=== PATIENT | female | born 1960 | race Caucasian/White ===

== ENCOUNTER 2017-05-03 10:45 | Emergency (ER) | payer MEDICAID ==
[~2017-05-03] VITALS: Ht 170.2 cm; Wt 72.5 kg
[~2017-05-03 10:45] MED LIST: DICL50TA2 PO; METH750T2 PO
[2017-05-03 11:01] VITALS: BP 139/83; PULSE 98; RESP 18; TEMP 98.7; O2SAT 95
[2017-05-03] MEDS ORDERED: ATOR20TA15 PO (11:20)
[2017-05-03] MEDS ORDERED: LOSA50TA PO (11:20)
[2017-05-03] MEDS ORDERED: SYNT25TA PO (11:20)
[2017-05-03] MEDS ORDERED: ASPI81CH CHEW (11:20)
[2017-05-03] MEDS ORDERED: KETOROLAC TROMETHAMINE 60 MG/2 ML (IM) VIAL IM ONE (11:30)
[2017-05-03] MEDS ORDERED: INDO50CA PO (11:32)
--- NOTE | 2017-05-03 11:32 | PD ---
HPI Chief Complaint: Musculoskeletal Complaint Time Seen by Provider: 11:11 Travel History International Travel<30 days: No Contact w/Intl Traveler<30days: No Traveled to known affect area: No History of Present Illness HPI 56-year-old female presents to the emergency room via ambulance for evaluation of right knee pain that started yesterday. Pain is severe. Localized to the medial aspect. No radiation. Worse with range of motion. No pain at rest. States she could not ambulate because of pain. She has not taken anything for symptoms. Denies trauma or injury. States it started yesterday after sitting down at a restaurant [place] and progressively worsened throughout the night. States she called her daughter to take her to the emergency room this morning but she could not get out of bed because of the pain that she had to call 911. States she can take Motrin and Advil without any problems but Aleve makes her itchy. Denies recent increased fish intake or significant alcohol intake. States she had 2 glasses of wine last night. PFSH Past Medical History High Cholesterol: Yes Hypertension: Yes Thyroid Disease: Yes Social History Alcohol Use: Yes (STATES SHE DRANK A COUPLE OF GLASSES OF WINE LAST NIGHT) Tobacco Use: No Substance Use: No Allergies-Medications (Allergen,Severity, Reaction): Coded Allergies: naproxen (Unverified Allergy, Severe, 05/03/17) HIVES Reported Meds & Prescriptions Reported Meds & Active Scripts Active Indomethacin 50 Mg Cap 50 Mg PO TID 5 Days Take with food, milk, or antacids to decrease stomach adverse effects. Reported Losartan (Losartan Potassium) 50 Mg Tab 50 Mg PO DAILY Aspirin 81 Mg Chew 81 Mg CHEW DAILY Atorvastatin (Atorvastatin Calcium) 20 Mg Tab 20 Mg PO HS Synthroid (Levothyroxine Sodium) 25 Mcg Tab 25 Mcg PO DAILY Review of Systems Except as stated in HPI: all other systems reviewed are Neg Physical Exam Narrative GENERAL: Well-nourished, well-developed female in no acute distress. Afebrile. SKIN: Focused skin assessment warm/dry. No erythema. Multiple areas of ecchymosis throughout body, especially on legs in different stages of healing. HEAD: Normocephalic. EYES: No scleral icterus. No injection or drainage. NECK: Supple, trachea midline. No JVD or lymphadenopathy. CARDIOVASCULAR: Regular rate and rhythm without murmurs, gallops, or rubs. RESPIRATORY: Breath sounds equal bilaterally. No accessory muscle use. MUSCULOSKELETAL: No cyanosis. No obvious edema or effusion. 2+ dorsalis pedis pulse. Full range of motion. Pain with active range of motion. No pain with passive range of motion. No bony tenderness to palpation. There is moderate increased warmth. Data Data Last Documented VS Vital Signs Date Time Temp Pulse Resp B/P (MAP) Pulse Ox O2 Delivery O2 Flow Rate FiO2 05/03/17 11:01 98.7 98 18 139/83 (101) 95 Orders Orders Ketorolac Inj (Toradol Inj) (05/03/17 11:30) Crutches (05/03/17 11:24) Marvin Bandage (05/03/17 11:24) Acetamin-Hydrocod 325-5 Mg ([place] 5-325 (05/03/17 12:00) MDM Medical Decision Making Medical Screen Exam Complete: Yes Emergency Medical Condition: Yes Medical Record Reviewed: Yes Differential Diagnosis Internal derangement, fracture, dislocation, contusion, inflammatory arthritis Narrative Course 56-year-old female presents to the emergency room for evaluation of right knee pain that started yesterday gradually worsened overnight. Patient denies trauma or injury. Pain started while sitting in a restaurant [place]. Physical exam is reassuring. Patient has minimal pain with passive range of motion but severe pain with active range of motion. Right lower extremities is neurovascularly intact with 2+ dorsalis pedis pulse. Full range of motion. No obvious effusion or edema. No bony tenderness to palpation. There is moderately increased warmth to the medial aspect of the right knee. No indication for imaging at this time. No concern for septic arthritis. History and physical exam are consistent with inflammatory arthritis. Patient was given Toradol and Lortab in the emergency room. She was placed in Marvin wrap and given crutches. She was discharged with prescription for indomethacin. Patient became cantankerous when told that she would not be provided with narcotic pain medication to go home with. She has the smell of alcohol on her breath and I am concerned for mixing narcotics with alcohol. Told to follow up with a primary care physician or return for worsening symptoms. She understands and agrees to plan. Diagnosis Primary Impression: Inflammatory arthritis Referrals: Primary Care Physician Additional Instructions: Rest and drink plenty of fluids. Use Marvin wrap and crutches as needed for pain. Take ibuprofen with food as directed, as needed for pain. Apply ice to the affected area for 20 minutes at a time, as needed for pain and swelling. Follow-up with a primary care physician. Return to the emergency room for worsening symptoms. Med/Other Pt SpecificInfo: Prescription(s) given Scripts Indomethacin (Indomethacin) 50 Mg Cap 50 MG PO TID for 5 Days, CAP 0 Refills Take with food, milk, or antacids to decrease stomach adverse effects. Prov: Butch Oropeza MD 05/03/17 Disposition: 01 DISCHARGE HOME Condition: Stable Paola Wills May 03, 2017 11:32
[2017-05-03] MEDS ORDERED: ACETAMINOPHEN/HYDROcodone 325 MG/5 MG TAB PO ONE (12:00)
== END 2017-05-03 13:13 | disposition home or self-care (01) ==
LOC: PHEFT 10:45
DX: M06.4 Inflammatory polyarthropathy (principal); E78.00 Pure hypercholesterolemia, unspecified; I10 Essential (primary) hypertension; E07.9 Disorder of thyroid, unspecified
CPT/HCPCS: 96372; 99284; E0113; J1885

== ENCOUNTER 2017-10-01 12:18 | Inpatient (IN) | payer MEDICAID ==
[~2017-10-01] VITALS: Ht 167.6 cm; Wt 64.3 kg
[2017-10-01] VITALS (7 sets, daily range): BP systolic 130–158; BP diastolic 76–91; PULSE 70–92; RESP 13–22; TEMP 97.1–98.7; O2SAT 95–99
[~2017-10-01 12:18] MED LIST changes: +ASPI-516 CHEW; +ATOR20TA15 PO; -DICL50TA2 PO; +INDO50CA PO; +LOSA50TA PO; -METH750T2 PO; +SYNT25TA PO
[2017-10-01] MEDS ORDERED: SODIUM CHLORIDE 0.9% FLUSH 10 ML FLUSH IV FLUSH PRN ×2 (12:45→16:00)
[2017-10-01] MEDS ORDERED: NALOXONE HCL 0.4 MG/ML AMP IV PUSH ONE (12:45)
--- NOTE | 2017-10-01 12:48 | PD ---
HPI Chief Complaint: AMS Time Seen by Provider: 12:38 Travel History International Travel<30 days: No Contact w/Intl Traveler<30days: No Traveled to known affect area: No History of Present Illness HPI 56-year-old female presents to the emergency room for evaluation of altered mental status. Her family called the ambulance because she was not responding to them. Patient was found lying on the ground, next to her address with a pillow under her head. Her mattress is directly on the floor. Her family told paramedics she has had flulike symptoms. Unknown last seen normal. Patient's vital signs were stable throughout the ambulance ride. She responded to pain and was moving all extremities normally. She refuses to follow commands. History is limited. Patient localizes to pain, opens eyes to speech. She was noted to be moaning on scene. She does not follow commands. Family showed up a short time later and was unable to add anything meaningful to the history. PFSH Past Medical History High Cholesterol: Yes Hypertension: Yes Thyroid Disease: Yes Social History Alcohol Use: Yes (STATES SHE DRANK A COUPLE OF GLASSES OF WINE LAST NIGHT) Tobacco Use: No Substance Use: No Allergies-Medications (Allergen,Severity, Reaction): Coded Allergies: naproxen (Unverified Allergy, Severe, 05/03/17) HIVES Reported Meds & Prescriptions Reported Meds & Active Scripts Active Indomethacin 50 Mg Cap 50 Mg PO TID 5 Days Take with food, milk, or antacids to decrease stomach adverse effects. Reported Losartan (Losartan Potassium) 50 Mg Tab 50 Mg PO DAILY Aspirin 81 Mg Chew 81 Mg CHEW DAILY Atorvastatin (Atorvastatin Calcium) 20 Mg Tab 20 Mg PO HS Synthroid (Levothyroxine Sodium) 25 Mcg Tab 25 Mcg PO DAILY Review of Systems Except as stated in HPI: all other systems reviewed are Neg Physical Exam Narrative GENERAL: Well-nourished, well-developed female in no acute distress. Afebrile. Ambulatory. SKIN: Focused skin assessment warm/dry. HEAD: Normocephalic. EYES: No scleral icterus. No injection or drainage. NECK: Supple, trachea midline. No JVD or lymphadenopathy. CARDIOVASCULAR: Regular rate and rhythm without murmurs, gallops, or rubs. RESPIRATORY: Breath sounds equal bilaterally. No accessory muscle use. GASTROINTESTINAL: Abdomen soft, non-tender, nondistended. NEUROLOGICAL: Awake and alert. Motor and sensory grossly within normal limits. Patient localizes to pain, opens eyes to speech. She does not follow commands. Data Data Last Documented VS Vital Signs Date Time Temp Pulse Resp B/P (MAP) Pulse Ox O2 Delivery O2 Flow Rate FiO2 10/01/17 15:43 85 21 138/76 (96) 99 10/01/17 12:49 98.7 Room Air Orders Orders Electrocardiogram (10/01/17 12:32) Ammonia (10/01/17 12:32) Complete Blood Count With Diff (10/01/17 12:32) Comprehensive Metabolic Panel (10/01/17 12:32) Prothrombin Time / Inr (Pt) (10/01/17 12:32) Act Partial Throm Time (Ptt) (10/01/17 12:32) Troponin I (10/01/17 12:32) Thyroid Stimulating Hormone (10/01/17 12:32) Urinalysis - C+S If Indicated (10/01/17 12:32) Lactic Acid Sepsis Protocol (10/01/17 12:32) Blood Culture (10/01/17 12:32) Chest, Single Ap (10/01/17 12:32) Ct Brain W/O Iv Contrast(Rout) (10/01/17 12:32) Blood Glucose (10/01/17 12:32) Ecg Monitoring (10/01/17 12:32) Iv Access Insert/Monitor (10/01/17 12:32) Oximetry (10/01/17 12:32) Sodium Chloride 0.9% Flush (Ns Flush) (10/01/17 12:45) Drug Screen, Random Urine (10/01/17 12:32) Alcohol (Ethanol) (10/01/17 12:32) Influenzae A/B Antigen (10/01/17 12:32) Naloxone Inj (Narcan Inj) (10/01/17 12:45) Lactulose Liq (Lactulose Liq) (10/01/17 16:00) Inpatient Certification (10/01/17 15:23) Admit Order (Ed Use Only) (10/01/17 15:56) Admit To Inpatient (10/01/17 ) Vital Signs (Adult) Q4H (10/01/17 15:52) Neuro Checks Q4H (10/01/17 15:52) Activity Bed Rest (10/01/17 15:52) Bedside Glucose GERALDO.CSUGAR (10/01/17 15:52) Store Clerk Checker / Telemetry .CONTINUOUS (10/01/17 15:52) Intake + Output GERALDO.QSHIFT (10/01/17 15:52) Notify Dr: Other (10/01/17 15:52) Diet Clear Liquid (10/01/17 Dinner) Sodium Chlor 0.9% 1000 Ml Inj (Ns 1000 M (10/01/17 16:00) Sodium Chloride 0.9% Flush (Ns Flush) (10/01/17 16:00) Sodium Chloride 0.9% Flush (Ns Flush) (10/01/17 21:00) Ondansetron Inj (Zofran Inj) (10/01/17 16:00) Comprehensive Metabolic Panel (10/02/17 06:00) Complete Blood Count With Diff (10/02/17 06:00) Heparin Inj (Heparin Inj) (10/01/17 16:00) Scd Bilateral/Knee High GERALDO.BID (10/01/17 15:52) Naloxone Inj (Narcan Inj) (10/01/17 16:00) Lactulose Liq (Lactulose Liq) (10/01/17 17:00) Inpatient Certification (10/01/17 ) Ammonia (10/02/17 06:00) Labs Laboratory Tests Test 10/01/17 13:04 10/01/17 14:16 White Blood Count 3.1 TH/MM3 Red Blood Count 3.80 MIL/MM3 Hemoglobin 12.1 GM/DL Hematocrit 36.0 % Mean Corpuscular Volume 94.9 FL Mean Corpuscular Hemoglobin 31.8 PG Mean Corpuscular Hemoglobin Concent 33.6 % Red Cell Distribution Width 20.1 % Platelet Count 173 TH/MM3 Mean Platelet Volume 8.3 FL Neutrophils (%) (Auto) 62.7 % Lymphocytes (%) (Auto) 31.4 % Monocytes (%) (Auto) 4.6 % Eosinophils (%) (Auto) 0.8 % Basophils (%) (Auto) 0.5 % Neutrophils # (Auto) 1.9 TH/MM3 Lymphocytes # (Auto) 1.0 TH/MM3 Monocytes # (Auto) 0.1 TH/MM3 Eosinophils # (Auto) 0.0 TH/MM3 Basophils # (Auto) 0.0 TH/MM3 CBC Comment DIFF FINAL Differential Comment Urine Color YELLOW Urine Turbidity CLEAR Urine pH 8.0 Urine Specific [place] 1.016 Urine Protein NEG mg/dL Urine Glucose (UA) NEG mg/dL Urine Ketones NEG mg/dL Urine Occult Blood TRACE Urine Nitrite NEG Urine Bilirubin NEG Urine Urobilinogen LESS THAN 2.0 MG/DL Urine Leukocyte Esterase NEG Urine RBC 1 /hpf Urine Squamous Epithelial Cells <1 /hpf Microscopic Urinalysis Comment CATH-CULT NOT IND Blood Urea Nitrogen 9 MG/DL Creatinine 0.82 MG/DL Random Glucose 95 MG/DL Total Protein 6.3 GM/DL Albumin 3.1 GM/DL Calcium Level 7.7 MG/DL Alkaline Phosphatase 162 U/L Aspartate Amino Transf (AST/SGOT) 68 U/L Alanine Aminotransferase (ALT/SGPT) 33 U/L Total Bilirubin 0.3 MG/DL Sodium Level 142 MEQ/L Potassium Level 3.7 MEQ/L Chloride Level 106 MEQ/L Carbon Dioxide Level 27.1 MEQ/L Anion Gap 9 MEQ/L Estimat Glomerular Filtration Rate 72 ML/MIN Lactic Acid Level 1.9 mmol/L Ammonia 231 MCMOL/L Troponin I LESS THAN 0.02 NG/ML Thyroid Stimulating Hormone 3rd Gen 9.290 uIU/ML Ethyl Alcohol Level 159 MG/DL Prothrombin Time 12.4 SEC Prothromb Time International Ratio 1.2 RATIO Activated Partial Thromboplast Time 23.6 SEC [facility] Medical Decision Making Medical Screen Exam Complete: Yes Emergency Medical Condition: Yes Medical Record Reviewed: Yes Differential Diagnosis Drug overdose, alcohol intoxication, stroke, STEMI, sepsis Narrative Course 56-year-old female with history of hypertension, hypothyroidism and had hypercholesterolemia presents to the emergency room for evaluation of altered mental status. Her family found her lying on the floor next to her mattress with a pillow under her head. She was not acting normally. Unknown last seen normal. On exam, patient localizes to pain, opens eyes to speech. She does not follow commands and is not speaking. History limited. GCS is 10 on initial examination. Vital signs stable. Patient is protecting her airway. IV access established and basic labs obtained. Patient was in cardiac telemetry. EKG shows sinus rhythm with a rate of [address] changes. Chest x-ray and CT of the brain are unremarkable. CBC is essentially unremarkable. CMP is essentially unremarkable. Lactic acid is 1.9. Ammonia is markedly elevated at 231. Troponin is less than 0.02. TSH is elevated to 9.29 and a patient with known hypothyroidism. Alcohol level of 159. UA shows no evidence of infection. Patient was initially given 0.4 mg of IV Narcan without any change in behavior. Rectal lactulose was ordered. Upon insertion of the catheter into the rectum, patient began to wake up. While administering the lactulose, her GCS increased from 10-14. Patient will be admitted to the hospitalist. Diagnosis Primary Impression: Alcohol intoxication Qualified Codes: F10.929 - Alcohol use, unspecified with intoxication, unspecified Additional Impression: Hepatic encephalopathy Admitting Information Admitting Physician Requests: Admit Condition: Stable Paola Wills Oct 01, 2017 12:48
--- NOTE | 2017-10-01 13:35 | RADRPT ---
EXAM DATE/TIME: 10/01/2017 12:51 [facility] COMPARISON: No previous studies available for comparison. INDICATIONS : Found unresponsive. MEDICAL HISTORY : none known SURGICAL HISTORY : none known ENCOUNTER: Initial ACUITY: 1 day PAIN SCORE: Non-responsive. LOCATION: Bilateral chest FINDINGS: A single view of the chest demonstrates the lungs to be symmetrically aerated without evidence of mas s, infiltrate or effusion. The cardiomediastinal contours are unremarkable. Osseous structures are intact. CONCLUSION: 1. No acute cardiopulmonary disease. Shelton Mireles MD on October 01, 2017 at 13:31 Board Certified Radiologist. This report was verified electronically.
[2017-10-01 13:44] LABS: AUTOMATED NEUTROPHIL # 1.9 TH/MM3 (1.8-7.7); BASOPHIL % 0.5 % (0.0-2.0); EOSINOPHIL % 0.8 % (0.0-4.0); HEMOGLOBIN 12.1 GM/DL (11.6-15.3); LYMPH % 31.4 % (9.0-44.0); MEAN CELL VOLUME 94.9 FL (80.0-100.0); MEAN CORPUSCULAR HEMOGLOBIN 31.8 PG (27.0-34.0); MEAN CORPUSCULAR HGB CONC 33.6 % (32.0-36.0); MEAN PLATELET VOLUME 8.3 FL (7.0-11.0); MONO % 4.6 % (0.0-8.0); MONOCYTE # 0.1 TH/MM3 (0-0.9); NEUT % 62.7 % (16.0-70.0); PLATELET COUNT 173 TH/MM3 (150-450); RED CELL DISTRIBUTION WIDTH 20.1 % (11.6-17.2); WHITE BLOOD COUNT 3.1 TH/MM3 (4.0-11.0)
[2017-10-01 13:49] LABS: BILIRUBIN, URINE NEG (NEG); BLOOD, URINE TRACE (NEG); GLUCOSE,URINE NEG (NEG); KETONE, URINE NEG (NEG); NITRITE,URINE NEG (NEG); SQUAMOUS EPITHELIAL CELL URINE <1 /hpf (0-5); URINE COLOR YELLOW (YELLW/STRAW); URINE LEUKOCYTE ESTERASE NEG (NEG)
--- NOTE | 2017-10-01 13:54 | RADRPT ---
EXAM DATE/TIME: 10/01/2017 13:28 [facility] COMPARISON: No previous studies available for comparison. INDICATIONS : Altered mental status,unresponsive RADIATION DOSE: 56.35 CTDIvol (mGy) MEDICAL HISTORY : Hypertension. Thyroid disease SURGICAL HISTORY : None. ENCOUNTER: Initial ACUITY: 1 day PAIN SCALE: Non-responsive LOCATION: cranial TECHNIQUE: Multiple contiguous axial images were obtained of the head. Using automated exposure control and adj ustment of the mA and/or kV according to patient size, radiation dose was kept as low as reasonably a chievable to obtain optimal diagnostic quality images. DICOM format image data is available electro nically for review and comparison. FINDINGS: CEREBRUM: The ventricles are normal for age. No evidence of midline shift, mass lesion, hemorrhage or acute in farction. No extra-axial fluid collections are seen. POSTERIOR FOSSA: The cerebellum and brainstem are intact. The 4th ventricle is midline. The cerebellopontine angle i s unremarkable. EXTRACRANIAL: The visualized portion of the orbits is intact. SKULL: The calvaria is intact. No evidence of skull fracture. CONCLUSION: Negative noncontrast CT Matteo Penaloza MD on October 01, 2017 at 13:51 Board Certified Radiologist. This report was verified electronically.
[2017-10-01 14:02] LABS: ALBUMIN 3.1 GM/DL (3.4-5.0); AST (GOT) 68 U/L (15-37); BICARBONATE 27.1 MEQ/L (21.0-32.0); BLOOD UREA NITROGEN 9 MG/DL (7-18); CALCIUM 7.7 MG/DL (8.5-10.1); CHLORIDE 106 MEQ/L (98-107); GLUCOSE,RANDOM 95 MG/DL (74-106); SODIUM (NA) 142 MEQ/L (136-145)
[2017-10-01 14:12] LABS: ALKALINE PHOSPHATASE 162 U/L (45-117); ALT (GPT) 33 U/L (10-53); CREATININE 0.82 MG/DL (0.50-1.00); GLOMERULAR FILTRATION RATE 72 ML/MIN (>89); TOTAL BILIRUBIN ADULT 0.3 MG/DL (0.2-1.0); TOTAL PROTEIN 6.3 GM/DL (6.4-8.2); TROPONIN I LESS THAN 0.02 NG/ML (0.02-0.05)
[2017-10-01 15:01] LABS: INTERNATIONAL NORMALIZED RATIO 1.2 RATIO; PROTHROMBIN TIME - PATIENT 12.4 SEC (9.8-11.6)
[2017-10-01] MEDS ORDERED: ONDANSETRON HCL 4 MG/2 ML VIAL IVP PRN (16:00)
[2017-10-01] MEDS ORDERED: NALOXONE HCL 0.4 MG/ML AMP IV PUSH PRN (16:00)
[2017-10-01] MEDS ORDERED: SODIUM CHLOR 0.9% 1000 ML INJ 1,000 ML IV SCH (16:00)
[2017-10-01] MEDS ORDERED: LACTULOSE LIQ 300 ML in WATER STERILE FOR IRR BTL 700 ML RECTAL ONE (16:00)
--- NOTE | 2017-10-01 16:24 | PD ---
Physical Exam Narrative GENERAL: Well-nourished, well-developed patient. SKIN: Warm and dry. HEAD: Normocephalic and atraumatic. EYES: No injection or drainage. Pupils 2 mm bilaterally ENT: No nasal drainage noted. NECK: Supple, trachea midline. No meningeal signs CARDIOVASCULAR: Regular rate and rhythm RESPIRATORY: Breath sounds equal bilaterally. No accessory muscle use. GASTROINTESTINAL: Abdomen nondistended. NEUROLOGICAL: Patient will open eyes to voice, moves all extremities and localizes to pain, mumbles Data Data Last Documented VS Vital Signs Date Time Temp Pulse Resp B/P (MAP) Pulse Ox O2 Delivery O2 Flow Rate FiO2 10/01/17 15:43 85 21 138/76 (96) 99 10/01/17 12:49 98.7 Room Air Orders Orders Electrocardiogram (10/01/17 12:32) Ammonia (10/01/17 12:32) Complete Blood Count With Diff (10/01/17 12:32) Comprehensive Metabolic Panel (10/01/17 12:32) Prothrombin Time / Inr (Pt) (10/01/17 12:32) Act Partial Throm Time (Ptt) (10/01/17 12:32) Troponin I (10/01/17 12:32) Thyroid Stimulating Hormone (10/01/17 12:32) Urinalysis - C+S If Indicated (10/01/17 12:32) Lactic Acid Sepsis Protocol (10/01/17 12:32) Blood Culture (10/01/17 12:32) Chest, Single Ap (10/01/17 12:32) Ct Brain W/O Iv Contrast(Rout) (10/01/17 12:32) Blood Glucose (10/01/17 12:32) Ecg Monitoring (10/01/17 12:32) Iv Access Insert/Monitor (10/01/17 12:32) Oximetry (10/01/17 12:32) Sodium Chloride 0.9% Flush (Ns Flush) (10/01/17 12:45) Drug Screen, Random Urine (10/01/17 12:32) Alcohol (Ethanol) (10/01/17 12:32) Influenzae A/B Antigen (10/01/17 12:32) Naloxone Inj (Narcan Inj) (10/01/17 12:45) Lactulose Liq (Lactulose Liq) (10/01/17 16:00) Inpatient Certification (10/01/17 15:23) Admit Order (Ed Use Only) (10/01/17 15:56) Admit To Inpatient (10/01/17 ) Vital Signs (Adult) Q4H (10/01/17 15:52) Neuro Checks Q4H (10/01/17 15:52) Activity Bed Rest (10/01/17 15:52) Bedside Glucose GERALDO.CSUGAR (10/01/17 15:52) Heel Gouger / Telemetry .CONTINUOUS (10/01/17 15:52) Intake + Output GERALDO.QSHIFT (10/01/17 15:52) Notify Dr: Other (10/01/17 15:52) Diet Clear Liquid (10/01/17 Dinner) Sodium Chlor 0.9% 1000 Ml Inj (Ns 1000 M (10/01/17 16:00) Sodium Chloride 0.9% Flush (Ns Flush) (10/01/17 16:00) Sodium Chloride 0.9% Flush (Ns Flush) (10/01/17 21:00) Ondansetron Inj (Zofran Inj) (10/01/17 16:00) Comprehensive Metabolic Panel (10/02/17 06:00) Complete Blood Count With Diff (10/02/17 06:00) Heparin Inj (Heparin Inj) (10/01/17 16:00) Scd Bilateral/Knee High GERALDO.BID (10/01/17 15:52) Naloxone Inj (Narcan Inj) (10/01/17 16:00) Lactulose Liq (Lactulose Liq) (10/01/17 17:00) Inpatient Certification (10/01/17 ) Ammonia (10/02/17 06:00) Labs Laboratory Tests Test 10/01/17 13:04 10/01/17 14:16 White Blood Count 3.1 TH/MM3 Red Blood Count 3.80 MIL/MM3 Hemoglobin 12.1 GM/DL Hematocrit 36.0 % Mean Corpuscular Volume 94.9 FL Mean Corpuscular Hemoglobin 31.8 PG Mean Corpuscular Hemoglobin Concent 33.6 % Red Cell Distribution Width 20.1 % Platelet Count 173 TH/MM3 Mean Platelet Volume 8.3 FL Neutrophils (%) (Auto) 62.7 % Lymphocytes (%) (Auto) 31.4 % Monocytes (%) (Auto) 4.6 % Eosinophils (%) (Auto) 0.8 % Basophils (%) (Auto) 0.5 % Neutrophils # (Auto) 1.9 TH/MM3 Lymphocytes # (Auto) 1.0 TH/MM3 Monocytes # (Auto) 0.1 TH/MM3 Eosinophils # (Auto) 0.0 TH/MM3 Basophils # (Auto) 0.0 TH/MM3 CBC Comment DIFF FINAL Differential Comment Urine Color YELLOW Urine Turbidity CLEAR Urine pH 8.0 Urine Specific [place] 1.016 Urine Protein NEG mg/dL Urine Glucose (UA) NEG mg/dL Urine Ketones NEG mg/dL Urine Occult Blood TRACE Urine Nitrite NEG Urine Bilirubin NEG Urine Urobilinogen LESS THAN 2.0 MG/DL Urine Leukocyte Esterase NEG Urine RBC 1 /hpf Urine Squamous Epithelial Cells <1 /hpf Microscopic Urinalysis Comment CATH-CULT NOT IND Blood Urea Nitrogen 9 MG/DL Creatinine 0.82 MG/DL Random Glucose 95 MG/DL Total Protein 6.3 GM/DL Albumin 3.1 GM/DL Calcium Level 7.7 MG/DL Alkaline Phosphatase 162 U/L Aspartate Amino Transf (AST/SGOT) 68 U/L Alanine Aminotransferase (ALT/SGPT) 33 U/L Total Bilirubin 0.3 MG/DL Sodium Level 142 MEQ/L Potassium Level 3.7 MEQ/L Chloride Level 106 MEQ/L Carbon Dioxide Level 27.1 MEQ/L Anion Gap 9 MEQ/L Estimat Glomerular Filtration Rate 72 ML/MIN Lactic Acid Level 1.9 mmol/L Ammonia 231 MCMOL/L Troponin I LESS THAN 0.02 NG/ML Thyroid Stimulating Hormone 3rd Gen 9.290 uIU/ML Ethyl Alcohol Level 159 MG/DL Prothrombin Time 12.4 SEC Prothromb Time International Ratio 1.2 RATIO Activated Partial Thromboplast Time 23.6 SEC [facility] Medical Record Reviewed: Yes Supervised Visit with ARIA: Yes Interpretation(s) CBC & BMP Diagram 10/01/17 13:04 Total Protein 6.3 L, Albumin 3.1 L, Calcium Level 7.7 L, Alkaline Phosphatase 162 H, Aspartate Amino Transf (AST/SGOT) 68 H, Alanine Aminotransferase (ALT/ SGPT) 33, Total Bilirubin 0.3 Last [address] 10/01/17 1232 Signed Impressions: Service Date/Time: October 13:28 - CONCLUSION: Negative noncontrast CT Matteo Penaloza MD Chest X-Ray 10/01/17 1232 Signed Impressions: Service Date/Time: October 12:51 - CONCLUSION: 1. No acute cardiopulmonary disease. Shelton Mireles MD Narrative Course I, Dr. norris, have reviewed the advance practice practitioner's documentation and am in agreement, met with the patient face to face, made the diagnosis, and the medical decision making was done by me. *My assessment and Findings: 56-year-old female presents with altered mental status. Findings show severely elevated lactate and mild alcohol intoxication. She was given rectal lactulose and started to improve. She will need to be monitored in the intermediate care area. Family updated and agree to plan. Physician Communication Physician Communication dr mistry agrees to admit Diagnosis Primary Impression: Hepatic encephalopathy Additional Impression: Alcohol intoxication Qualified Codes: F10.929 - Alcohol use, unspecified with intoxication, unspecified Admitting Information Admitting Physician Requests: Admit Condition: Stable Court Norris MD Oct 01, 2017 16:24
[2017-10-01] MEDS: HEPARIN SODIUM - SQ 10,000 UNITS/ML VIAL SQ SCH (16:38)
[2017-10-01] MEDS: LACTULOSE SYRUP 20 GM/30 ML CUP PO SCH ×2 (16:38→20:33)
[2017-10-01] MEDS ORDERED: LORazepam 2 MG TAB PO PRN (17:45)
[2017-10-01] MEDS ORDERED: LORazepam 2 MG/ML VIAL IV PUSH PRN ×3 (17:45)
[2017-10-01] MEDS ORDERED: FLUMAZENIL 0.5 MG/5 ML VIAL IV PUSH PRN (17:45)
--- NOTE | 2017-10-01 18:30 | HHI.HP ---
HPI Service [facility] Primary Care Physician Unknown Admission Diagnosis hepatic encephalopathy Diagnoses: Chief Complaint: Change of mental status Travel History International Travel<30 Days: No Contact w/Intl Traveler <30 Da: No Traveled to Known Affected Are: No History of Present Illness 56 years old female presented to the ED obtunded He was found laying on the ground to [facility] with a pillow under her head, in ED he was with a GCS of 10 on initial exam initial lab showed pneumonia level at 210, patient was given rectal Kayexalate which improved her GCS, I saw the patient in the room her daughter was at the bedside, patient was arousable but lethargic able to recognize her daughter and the place only. She felt we are in July, the daughter told me patient drank last night during which has "12% alcohol ", the daughter told me that the patient is a heavy drinker she has no past medical history except for depression and back pain she smoked one pack per day. Most of the story obtained from the daughter Review of Systems ROS Limitations: Altered Mental Status Past Family Social History Past Medical History Pressure and back pain as per the daughter Past Surgical History not obtainable from the patient Allergies: Coded Allergies: naproxen (Unverified Allergy, Severe, 05/03/17) HIVES Family History Unobtainable Social History Smoke one pack per day and heavy drinker for alcohol, no substance abuse per the daughter Physical Exam Vital Signs Vital Signs Date Time Temp Pulse Resp B/P (MAP) Pulse Ox O2 Delivery O2 Flow Rate FiO2 10/01/17 15:43 85 21 138/76 (96) 99 10/01/17 12:49 98.7 70 13 130/78 (95) 96 Room Air Physical Exam GENERAL: This frail 56 years old female who is lethargic SKIN: No rashes, warm and dry HEAD: Atraumatic. Normocephalic. EYES: Pupils equal round and reactive. Extraocular motions intact. No scleral icterus. ENT: Nose without bleeding, or drainage, Airway patent. NECK: Trachea midline. Supple CARDIOVASCULAR: Regular rate and rhythm without murmurs, gallops, or rubs. RESPIRATORY: Fair air entry bilaterally. No wheezes, rales, or rhonchi. GASTROINTESTINAL: Abdomen soft, non-tender, nondistended. Positive bowel sounds MUSCULOSKELETAL: Extremities without clubbing, cyanosis, or edema. Pedal pulses appreciated NEUROLOGICAL: Lethargic Moves all extremity. no focal neurological deficit Laboratory Laboratory Tests Test 10/01/17 13:04 10/01/17 14:16 White Blood Count 3.1 Red Blood Count 3.80 Hemoglobin 12.1 Hematocrit 36.0 Mean Corpuscular Volume 94.9 Mean Corpuscular Hemoglobin 31.8 Mean Corpuscular Hemoglobin Concent 33.6 Red Cell Distribution Width 20.1 Platelet Count 173 Mean Platelet Volume 8.3 Neutrophils (%) (Auto) 62.7 Lymphocytes (%) (Auto) 31.4 Monocytes (%) (Auto) 4.6 Eosinophils (%) (Auto) 0.8 Basophils (%) (Auto) 0.5 Neutrophils # (Auto) 1.9 Lymphocytes # (Auto) 1.0 Monocytes # (Auto) 0.1 Eosinophils # (Auto) 0.0 Basophils # (Auto) 0.0 CBC Comment DIFF FINAL Differential Comment Urine Color YELLOW Urine Turbidity CLEAR Urine pH 8.0 Urine Specific [place] 1.016 Urine Protein NEG Urine Glucose (UA) NEG Urine Ketones NEG Urine Occult Blood TRACE Urine Nitrite NEG Urine Bilirubin NEG Urine Urobilinogen LESS THAN 2.0 Urine Leukocyte Esterase NEG Urine RBC 1 Urine Squamous Epithelial Cells <1 Microscopic Urinalysis Comment CATH-CULT NOT IND Blood Urea Nitrogen 9 Creatinine 0.82 Random Glucose 95 Total Protein 6.3 Albumin 3.1 Calcium Level 7.7 Alkaline Phosphatase 162 Aspartate Amino Transf (AST/SGOT) 68 Alanine Aminotransferase (ALT/SGPT) 33 Total Bilirubin 0.3 Sodium Level 142 Potassium Level 3.7 Chloride Level 106 Carbon Dioxide Level 27.1 Anion Gap 9 Estimat Glomerular Filtration Rate 72 Lactic Acid Level 1.9 Ammonia 231 Troponin I LESS THAN 0.02 Thyroid Stimulating Hormone 3rd Gen 9.290 Ethyl Alcohol Level 159 Prothrombin Time 12.4 Prothromb Time International Ratio 1.2 Activated Partial Thromboplast Time 23.6 Date/Time Source Procedure Growth Status 10/01/17 13:04 Blood Peripheral Aerobic Blood Culture Pending Received 10/01/17 13:04 Blood Peripheral Anaerobic Blood Culture Pending Received 10/01/17 13:11 Nasal Aspirate Influenza Types A,B Antigen (LANCE) - Final NEGATIVE FOR FLU A AND B ANTIGEN.... Complete Result Diagram: 10/01/17 1304 10/01/17 1304 Imaging Last Impressions Head CT 10/01/17 1232 Signed Impressions: Service Date/Time: October 13:28 - CONCLUSION: Negative noncontrast CT Matteo Penaloza MD Chest X-Ray 10/01/17 1232 Signed Impressions: Service Date/Time: October 12:51 - CONCLUSION: 1. No acute cardiopulmonary disease. MD Elizabeth Carroll VTE Risk Assessment Caprini VTE Risk Assessment: Mod/High Risk (score >= 2) Caprini Risk Assessment Model Point Value = 1 Point Value = 2 Point Value = 3 Point Value = 5 Age 41-60 Minor surgery BMI > 25 kg/m2 Swollen legs Varicose veins or History of unexplained or recurrent spontaneous Oral contraceptives or hormone replacement Sepsis (< 1 month) Serious lung disease, including pneumonia (< 1 month) Abnormal pulmonary function Acute myocardial infarction Congestive heart failure (< 1 month) History of inflammatory bowel disease Medical patient at bed rest Age 61-74 Arthroscopic surgery Major open surgery (> 45 min) Laparoscopic surgery (> 45 min) Malignancy Confined to bed (> 72 hours) Immobilizing plaster cast Central venous access Age >= 75 History of VTE Family history of VTE Factor V Leiden Prothrombin [id number] Lupus anticoagulant Anticardiolipin antibodies Elevated serum homocysteine Heparin-induced thrombocytopenia Other congenital or acquired thrombophilia Stroke (< 1 month) Elective arthroplasty Hip, pelvis, or leg fracture Acute spinal cord injury (< 1 month) Prophylaxis Regimen Total Risk Factor Score Risk Level Prophylaxis Regimen 0-1 Low Early ambulation 2 Moderate Order ONE of the following: *Sequential Compression Device (SCD) *Heparin 5000 units SQ BID 3-4 Higher Order ONE of the following medications: *Heparin 5000 units SQ TID *Enoxaparin/Lovenox 40 mg SQ daily (WT < 150 kg, CrCl > 30 mL/min) *Enoxaparin/Lovenox 30 mg SQ daily (WT < 150 kg, CrCl > 10-29 mL/min) *Enoxaparin/Lovenox 30 mg SQ BID (WT < 150 kg, CrCl > 30 mL/min) AND/OR *Sequential Compression Device (SCD) 5 or more Highest Order ONE of the following medications: *Heparin 5000 units SQ TID (Preferred with Epidurals) *Enoxaparin/Lovenox 40 mg SQ daily (WT < 150 kg, CrCl > 30 mL/min) *Enoxaparin/Lovenox 30 mg SQ daily (WT < 150 kg, CrCl > 10-29 mL/min) *Enoxaparin/Lovenox 30 mg SQ BID (WT < 150 kg, CrCl > 30 mL/min) AND *Sequential Compression Device (SCD) Assessment and Plan Assessment and Plan 56 years old alcoholic female came obtunded acute toxic encephalopathy Alcohol intoxication Severe Hyperammonemia Increased TSH rule out hypothyroidism Coagulopathy with increased PT PTT/INR 1.2 Increase AST and alkaline phosphatase mostly alcoholic hepatitis DVT prophylaxis no chemical due to increased INR, SCD Plan: Admit to observation IV fluid Telemetry monitoring Kayexalate rectal has been given We'll place on Kayexalate 45 mg every 3 hours 4 and a repeat ammonia level in a.m. [facility] protocol Repeat LFT, consider hepatitis panel and liver ultrasound if not improving Discussed with the daughter Discussed Condition With ED physician and daughter Physician Certification 2 Midnight Certification Type: Admission for Inpatient Services Order for Inpatient Services The services are ordered in accordance with Medicare regulations or non- Medicare payer requirements, as applicable. In the case of services not specified as inpatient-only, they are appropriately provided as inpatient services in accordance with the 2-midnight benchmark. Estimated LOS (days): 2 days is the estimated time the patient will need to remain in the hospital, assuming treatment plan goals are met and no additional complications. Post-Hospital Plan: Not yet determined Soledad Lloyd MD Oct 01, 2017 18:30
[2017-10-01] MEDS: SODIUM CHLORIDE 0.9% FLUSH 10 ML FLUSH IV FLUSH SCH (20:33)
[2017-10-01] MEDS: LORazepam 2 MG/ML VIAL IV PUSH PRN (20:40)
[2017-10-02] VITALS (12 sets, daily range): BP systolic 153–173; BP diastolic 79–97; PULSE 78–108; RESP 16–22; TEMP 97–98.4; O2SAT 93–98
[2017-10-02] MEDS: HEPARIN SODIUM - SQ 10,000 UNITS/ML VIAL SQ SCH ×3 (00:33→16:00)
[2017-10-02] MEDS: LACTULOSE SYRUP 20 GM/30 ML CUP PO SCH ×2 (00:33→03:30)
[2017-10-02] MEDS: LORazepam 2 MG/ML VIAL IV PUSH PRN ×3 (00:37→16:00)
[2017-10-02] MEDS ORDERED: traMADol HCL 50 MG TAB PO ONE (03:15)
[2017-10-02 06:49] LABS: AUTOMATED NEUTROPHIL # 2.8 TH/MM3 (1.8-7.7); BASOPHIL % 0.5 % (0.0-2.0); EOSINOPHIL % 0.7 % (0.0-4.0); HEMATOCRIT 32.9 % (35.0-46.0); LYMPH % 33.2 % (9.0-44.0); LYMPHOCYTE # 1.6 TH/MM3 (1.0-4.8); MEAN CELL VOLUME 95.9 FL (80.0-100.0); MEAN CORPUSCULAR HEMOGLOBIN 31.9 PG (27.0-34.0); MEAN CORPUSCULAR HGB CONC 33.3 % (32.0-36.0); MEAN PLATELET VOLUME 8.6 FL (7.0-11.0); MONO % 4.9 % (0.0-8.0); MONOCYTE # 0.2 TH/MM3 (0-0.9); NEUT % 60.7 % (16.0-70.0); PLATELET COUNT 183 TH/MM3 (150-450); RED BLOOD COUNT 3.44 MIL/MM3 (4.00-5.30); RED CELL DISTRIBUTION WIDTH 20.5 % (11.6-17.2); WHITE BLOOD COUNT 4.7 TH/MM3 (4.0-11.0)
[2017-10-02 07:27] LABS: ALBUMIN 3.1 GM/DL (3.4-5.0); ALKALINE PHOSPHATASE 153 U/L (45-117); ALT (GPT) 29 U/L (10-53); AST (GOT) 66 U/L (15-37); BICARBONATE 24.2 MEQ/L (21.0-32.0); BLOOD UREA NITROGEN 9 MG/DL (7-18); CALCIUM 8.6 MG/DL (8.5-10.1); CHLORIDE 115 MEQ/L (98-107); CREATININE 1.28 MG/DL (0.50-1.00); GLOMERULAR FILTRATION RATE 43 ML/MIN (>89); GLUCOSE,RANDOM 100 MG/DL (74-106); SODIUM (NA) 151 MEQ/L (136-145); TOTAL BILIRUBIN ADULT 0.4 MG/DL (0.2-1.0); TOTAL PROTEIN 6.2 GM/DL (6.4-8.2)
[2017-10-02] MEDS ORDERED: POTASSIUM BICARBONATE 25 MEQ EFFERVESCENT TAB PO ONE (07:45)
[2017-10-02] MEDS ORDERED: POTASSIUM CHLORIDE INJ 20 MEQ in DEXTROSE 5% IN WATE 1000ML INJ 1,000 ML IV SCH ×2 (08:30)
[2017-10-02] MEDS: SODIUM CHLORIDE 0.9% FLUSH 10 ML FLUSH IV FLUSH SCH ×2 (09:00→21:00)
[2017-10-02] MEDS: D5W + KCL 20 MEQ INJ 1,000 ML IV SCH (09:25)
[2017-10-02] MEDS: LORazepam 1 MG TAB PO PRN ×2 (12:57→21:50)
[2017-10-02 18:27] LABS: BICARBONATE 26.1 MEQ/L (21.0-32.0); CALCIUM 8.4 MG/DL (8.5-10.1); CREATININE 1.05 MG/DL (0.50-1.00)
[2017-10-02] MEDS: ACETAMINOPHEN 325 MG TAB PO PRN (18:36)
--- NOTE | 2017-10-02 18:56 | EKG ---
Date Performed: 10/01/2017 Time Performed: 13:19:52 PTAGE: 56 years EKG: Sinus rhythm NORMAL ECG NO PREVIOUS TRACING DOCTOR: Berto Euceda Interpretating Date/Time 10/02/2017 18:55:55
--- NOTE | 2017-10-02 19:09 | HHI.PR ---
Subjective Remarks Late entry the patient was seen around 1 PM. Patient complaints of tremors, some nausea but not vomiting. She also has loose stools. No fever or chills. She is more awake and alert. complaints of headache. No cough. Objective Vitals Vital Signs Date Time Temp Pulse Resp B/P (MAP) Pulse Ox O2 Delivery O2 Flow Rate FiO2 10/02/17 17:12 98.0 99 16 173/91 (118) 98 10/02/17 16:59 Room Air 10/02/17 15:51 97.0 101 18 169/97 (121) 97 10/02/17 12:04 97.9 97 18 156/97 (116) 93 10/02/17 09:09 97.0 78 18 158/85 (109) 95 10/02/17 06:00 80 10/02/17 05:00 98.4 86 20 153/88 (109) 95 10/02/17 05:00 94 10/02/17 04:00 98 10/02/17 03:00 108 10/02/17 02:00 102 10/02/17 01:00 102 10/02/17 00:00 106 10/02/17 00:00 97.8 89 22 164/89 (114) 96 10/01/17 23:00 90 10/01/17 22:00 92 10/01/17 21:00 88 10/01/17 20:00 97.6 78 22 154/91 (112) 95 10/01/17 20:00 76 I/O 10/01/17 10/01/17 10/01/17 10/02/17 10/02/17 10/02/17 07:00 15:00 23:00 07:00 15:00 23:00 Intake Total 720 ml Output Total 400 ml Balance 320 ml Intake Oral 720 ml Output Urine Total 400 ml # Bowel Movements 3 1 Result Diagram: 10/02/17 0625 10/02/17 1738 Imaging Last Impressions Head CT 10/01/17 1232 Signed Impressions: Service Date/Time: October 13:28 - CONCLUSION: Negative noncontrast CT Matteo Penaloza MD Chest X-Ray 10/01/17 1232 Signed Impressions: Service Date/Time: October 12:51 - CONCLUSION: 1. No acute cardiopulmonary disease. Shelton Mireles MD Objective Remarks GENERAL: This frail 56 years old female, somnolent. CARDIOVASCULAR: Regular rate and rhythm without murmurs, gallops, or rubs. RESPIRATORY: Good entry bilaterally. No wheezes, rales, or rhonchi. GASTROINTESTINAL: Abdomen soft, non-tender, nondistended. Positive bowel sounds x4Q. MUSCULOSKELETAL: Extremities without clubbing, cyanosis, or edema. Pedal pulses appreciated NEUROLOGICAL: Somnolent, however more awake and she is alert and oriented x3. Moves all extremity. Follows commands, no focal neurological deficit A/P Assessment and Plan 56 years old alcoholic female came obtunded Acute toxic encephalopathy 2/2 elevated ammonia, EtOH intoxication Alcohol intoxication Severe Hyperammonemia Increased TSH rule out hypothyroidism Coagulopathy with increased PT PTT/INR 1.2 Increase AST and alkaline phosphatase mostly alcoholic hepatitis Hypokalemia, replace continue to monitor IVF Telemetry monitoring Received lactulose 45 mg every 3 hours 4 and a repeat ammonia level improved significantly. Monitor ammonia, continue lactulose titrate to 3-4 BM until ammonia back to normal CIWA protocol Monitor electrolytes and replate as need Repeat LFT, consider hepatitis panel and liver ultrasound if not improving DVT prophylaxis no chemical due to increased INR, SCD Discussed Condition With patient, nurse Kandy Echols MD Oct 02, 2017 19:09
[2017-10-02] MEDS ORDERED: chlordiazePOXIDE 25 MG CAP PO ONE (19:15)
[2017-10-03] VITALS (9 sets, daily range): BP systolic 138–156; BP diastolic 69–90; PULSE 76–109; RESP 18–20; TEMP 97.8–98.3; O2SAT 95–99
[2017-10-03] MEDS: HEPARIN SODIUM - SQ 10,000 UNITS/ML VIAL SQ SCH ×4 (00:56→21:08)
[2017-10-03] MEDS: LORazepam 1 MG TAB PO PRN ×7 (02:03→21:08)
[2017-10-03] MEDS: ACETAMINOPHEN 325 MG TAB PO PRN ×3 (02:04→18:21)
[2017-10-03] MEDS: D5W + KCL 20 MEQ INJ 1,000 ML IV SCH (05:49)
[2017-10-03] MEDS: SODIUM CHLORIDE 0.9% FLUSH 10 ML FLUSH IV FLUSH SCH ×2 (09:40→21:06)
[2017-10-03] MEDS ORDERED: LEVOTHYROXINE SODIUM 50 MCG TAB PO SCH (11:00)
--- NOTE | 2017-10-03 11:39 | HHI.PR ---
Subjective Remarks The patient states she has been drinking one watermelon flavored [place] on a regular basis. She said she used to drink vodka in the past. She denies any previous history of seizures related to alcohol withdrawal and denies any history of liver problems. She would like to speak with the social media developer in regards to follow-up care. Discussed with nursing. Objective Vitals Vital Signs Date Time Temp Pulse Resp B/P (MAP) Pulse Ox O2 Delivery O2 Flow Rate FiO2 10/03/17 08:06 97.8 88 18 156/87 (110) 95 10/03/17 08:00 Room Air 10/03/17 08:00 83 10/03/17 04:00 98.3 76 20 138/90 (106) 97 10/03/17 04:00 85 10/03/17 00:00 98.3 109 18 143/69 (93) 97 10/02/17 20:00 98.2 83 18 162/79 (106) 97 10/02/17 20:00 Room Air 10/02/17 17:12 98.0 99 16 173/91 (118) 98 10/02/17 16:59 Room Air 10/02/17 15:51 97.0 101 18 169/97 (121) 97 10/02/17 12:04 97.9 97 18 156/97 (116) 93 I/O 10/02/17 10/02/17 10/02/17 10/03/17 10/03/17 10/03/17 07:00 15:00 23:00 07:00 15:00 23:00 Intake Total 720 ml 240 ml Output Total 400 ml Balance 320 ml 240 ml Intake Oral 720 ml 240 ml Output Urine Total 400 ml # Voids 3 # Bowel Movements 3 1 Result Diagram: 10/02/17 0625 10/02/17 1738 Imaging Last Impressions Head CT 10/01/17 1232 Signed Impressions: Service Date/Time: October 13:28 - CONCLUSION: Negative noncontrast CT Matteo Penaloza MD Chest X-Ray 10/01/17 1232 Signed Impressions: Service Date/Time: October 12:51 - CONCLUSION: 1. No acute cardiopulmonary disease. Shelton Mireles MD Objective Remarks GENERAL: Resting comfortably in bed. SKIN: No rashes, warm and dry HEAD: Atraumatic. Normocephalic. EYES: Pupils equal round and reactive. Extraocular motions intact. No scleral icterus. ENT: Nose without bleeding, or drainage, Airway patent. NECK: Trachea midline. Supple CARDIOVASCULAR: Regular rate and rhythm without murmurs, gallops, or rubs. RESPIRATORY: Fair air entry bilaterally. No wheezes, rales, or rhonchi. GASTROINTESTINAL: Abdomen soft, non-tender, nondistended. Positive bowel sounds MUSCULOSKELETAL: Extremities without clubbing, cyanosis, or edema. Pedal pulses appreciated NEUROLOGICAL: Lethargic Moves all extremity. No focal neurological deficits. Medications and IVs Current Medications Medications (Trade) Dose Ordered Sig/Cyril Route Start Time Stop Time Status Last Admin (NS Flush) 2 ml UNSCH PRN IV FLUSH 10/01/17 16:00 (NS Flush) 2 ml BID IV FLUSH 10/01/17 21:00 10/03/17 09:40 (Zofran Inj) 4 mg Q6H PRN IVP 10/01/17 16:00 (Heparin Inj) 5,000 units Q8H SQ 10/01/17 16:00 10/03/17 09:40 (Narcan Inj) 0.4 mg UNSCH PRN IV PUSH 10/01/17 16:00 (Romazicon Inj) 0.2 mg Q1M PRN IV PUSH 10/01/17 17:45 (Ativan) 1 mg Q4H PRN PO 10/01/17 17:45 10/03/17 09:40 (Ativan Inj) 1 mg Q4H PRN IV PUSH 10/01/17 17:45 10/02/17 16:00 (Ativan) 2 mg Q2H PRN PO 10/01/17 17:45 (Ativan Inj) 2 mg Q2H PRN IV PUSH 10/01/17 17:45 (Ativan Inj) 2 mg Q1H PRN IV PUSH 10/01/17 17:45 (Ativan Inj) 2 mg Q15M PRN IV PUSH 10/01/17 17:45 (Tylenol) 650 mg Q8H PRN PO 10/02/17 18:30 10/03/17 09:40 (Synthroid) 50 mcg DAILY@0600 PO 10/03/17 11:00 (Aspirin Chew) 81 mg DAILY CHEW 10/03/17 11:45 (Lipitor) 20 mg HS PO 10/03/17 21:00 (Cozaar) 50 mg DAILY PO 10/03/17 11:45 Potassium Chloride 100 ml @ 50 mls/hr Q2H IV 10/03/17 12:00 10/03/17 15:59 A/P Assessment and Plan Acute toxic encephalopathy/ Alcoholic hepatitis 2/2 elevated ammonia, EtOH intoxication. INR was 1.2. - CIWA protocol with standing Librium. - seizure precautions. - trend LFTs. Check hepatitis profile. - liver US ordered. - continue lactulose. Hypothyroidism The pt has not taken her levothyroxine for weeks. - resume home dose of levothyroxine. Hypokalemia Likely s/t decreased PO intake. - replace, continue to monitor. - telemetry. PPx: Matteo Galicia DO Oct 03, 2017 11:39
[2017-10-03] MEDS: ASPIRIN 81 MG CHEW TAB CHEW SCH (12:39)
[2017-10-03] MEDS: POTASSIUM CHLOR 20 MEQ PREMIX 100 ML IV SCH ×2 (12:40→14:26)
[2017-10-03] MEDS: LOSARTAN 50 MG TAB PO SCH (12:40)
[2017-10-03] MEDS: LACTULOSE SYRUP 20 GM/30 ML CUP PO SCH (12:40)
[2017-10-03 18:46] LABS: ALBUMIN 3.3 GM/DL (3.4-5.0); AST (GOT) 42 U/L (15-37); BLOOD UREA NITROGEN 9 MG/DL (7-18); CALCIUM 8.3 MG/DL (8.5-10.1); CHLORIDE 103 MEQ/L (98-107); CREATININE 1.09 MG/DL (0.50-1.00); GLOMERULAR FILTRATION RATE 52 ML/MIN (>89); GLUCOSE,RANDOM 104 MG/DL (74-106); SODIUM (NA) 137 MEQ/L (136-145)
[2017-10-03 18:48] LABS: ALT (GPT) 24 U/L (10-53)
[2017-10-03 18:50] LABS: ALKALINE PHOSPHATASE 145 U/L (45-117); TOTAL BILIRUBIN ADULT 0.5 MG/DL (0.2-1.0); TOTAL PROTEIN 6.5 GM/DL (6.4-8.2)
[2017-10-03] MEDS: ATORVASTATIN 20 MG TAB PO SCH ×2 (21:00→21:05)
[2017-10-04] VITALS (7 sets, daily range): BP systolic 139–153; BP diastolic 72–97; PULSE 75–93; RESP 17–20; TEMP 97.3–98.4; O2SAT 96–100
[2017-10-04] MEDS: LORazepam 1 MG TAB PO PRN ×6 (00:11→21:39)
[2017-10-04] MEDS: ACETAMINOPHEN 325 MG TAB PO PRN ×2 (03:51→12:01)
[2017-10-04] MEDS: LEVOTHYROXINE SODIUM 25 MCG TAB PO SCH (05:21)
--- NOTE | 2017-10-04 07:58 | RADRPT ---
EXAM DATE/TIME: 10/04/2017 07:27 [place] COMPARISON: No previous studies available for comparison. INDICATIONS : Elevated lab values. MEDICAL HISTORY : Hypercholesterolemia. Hypertension. Thyroid disease. Alcohol use. SURGICAL HISTORY : None. ENCOUNTER: Initial ACUITY: 2 days PAIN SCORE: 3/10 LOCATION: Bilateral upper quadrant MEASUREMENTS: LIVER: 17.2 cm length COMMON DUCT: 7 mm RIGHT KIDNEY: 10.7 x 3.6 x 4.0 cm SPLEEN: 9.2 cm length FINDINGS: LIVER: Liver is borderline echogenic without focal lesion or ductal dilatation. Hepatopedal flow. COMMON DUCT: No intraluminal mass or stone visualized. GALLBLADDER: Contains no stones, demonstrates no wall thickening or pericholecystic fluid. PANCREAS: The visualized portions are within normal limits. RIGHT KIDNEY: No hydronephrosis, stone or mass. Simple cyst measures 2.4 x 1.8 x 2.4 cm. SPLEEN: No focal lesion. CONCLUSION: 1. Liver is borderline echogenic which can be seen with mild hepatic steatosis. 2. No evidence for cholelithiasis. 3. Right renal cyst. Agustín Cespedes MD on October 04, 2017 at 7:55 Board Certified Radiologist. This report was verified electronically.
[2017-10-04] MEDS: LOSARTAN 50 MG TAB PO SCH (08:28)
[2017-10-04] MEDS: LACTULOSE SYRUP 20 GM/30 ML CUP PO SCH (08:28)
[2017-10-04] MEDS: ASPIRIN 81 MG CHEW TAB CHEW SCH (08:28)
[2017-10-04] MEDS: HEPARIN SODIUM - SQ 10,000 UNITS/ML VIAL SQ SCH ×3 (08:30→23:30)
[2017-10-04] MEDS: SODIUM CHLORIDE 0.9% FLUSH 10 ML FLUSH IV FLUSH SCH ×2 (08:30→21:00)
[2017-10-04 08:31] LABS: ALBUMIN 3.1 GM/DL (3.4-5.0); BICARBONATE 23.9 MEQ/L (21.0-32.0); CALCIUM 8.1 MG/DL (8.5-10.1); CREATININE 0.77 MG/DL (0.50-1.00); DIRECT BILIRUBIN ADULT 0.1 MG/DL (0.0-0.2); INDIRECT BILIRUBIN 0.3 MG/DL (0.0-0.8); MAGNESIUM 1.7 MG/DL (1.5-2.5); TOTAL BILIRUBIN ADULT 0.4 MG/DL (0.2-1.0); TOTAL PROTEIN 6.1 GM/DL (6.4-8.2)
[2017-10-04] MEDS ORDERED: POTASSIUM CHLORIDE 20 MEQ CONTROLLED RELEASE TAB PO ONE (09:45)
[2017-10-04] MEDS: POTASSIUM CHLOR 20 MEQ PREMIX 100 ML IV SCH ×2 (10:17→12:33)
--- NOTE | 2017-10-04 11:41 | HHI.PR ---
Subjective Remarks The patient wanted to leave the hospital. She almost left AGAINST MEDICAL ADVICE but decided to stay. She said that she was ambulating well. Discussed with nursing at the bedside. Objective Vitals Vital Signs Date Time Temp Pulse Resp B/P (MAP) Pulse Ox O2 Delivery O2 Flow Rate FiO2 10/04/17 08:00 Room Air 10/04/17 08:00 86 10/04/17 08:00 98.0 75 18 153/73 (99) 97 10/04/17 04:00 79 10/04/17 04:00 97.5 82 20 145/72 (96) 97 10/04/17 00:00 93 10/04/17 00:00 98.3 82 20 151/87 (108) 98 10/03/17 20:00 Room Air 10/03/17 20:00 92 10/03/17 20:00 98.0 101 20 149/78 (101) 99 10/03/17 16:04 97.9 85 18 145/86 (105) 96 10/03/17 16:00 78 10/03/17 12:13 97.9 97 18 143/79 (100) 97 10/03/17 12:00 79 I/O 10/03/17 10/03/17 10/03/17 10/04/17 10/04/17 10/04/17 07:00 15:00 23:00 07:00 15:00 23:00 Intake Total 240 ml 720 ml 240 ml Balance 240 ml 720 ml 240 ml Intake Oral 240 ml 720 ml 240 ml # Voids 3 3 3 # Bowel Movements 1 0 Result Diagram: 10/02/17 0625 10/04/17 0607 Imaging Last Impressions Liver Ultrasound 10/04/17 0000 Signed Impressions: Service Date/Time: Wednesday, October 04, 2017 07:27 - CONCLUSION: 1. Liver is borderline echogenic which can be seen with mild hepatic steatosis. 2. No evidence for cholelithiasis. 3. Right renal cyst. Agustín Cespedes MD Head CT 10/01/17 1232 Signed Impressions: Service Date/Time: October 13:28 - CONCLUSION: Negative noncontrast CT Matteo Penaloza MD Chest X-Ray 10/01/17 1232 Signed Impressions: Service Date/Time: October 12:51 - CONCLUSION: 1. No acute cardiopulmonary disease. Shelton Mireles MD Objective Remarks GENERAL: Resting comfortably in bed. SKIN: No rashes, warm and dry HEAD: Atraumatic. Normocephalic. EYES: Pupils equal round and reactive. Extraocular motions intact. No scleral icterus. ENT: Nose without bleeding, or drainage, Airway patent. NECK: Trachea midline. Supple CARDIOVASCULAR: Regular rate and rhythm without murmurs, gallops, or rubs. RESPIRATORY: Fair air entry bilaterally. No wheezes, rales, or rhonchi. GASTROINTESTINAL: Abdomen soft, non-tender, nondistended. Positive bowel sounds MUSCULOSKELETAL: Extremities without clubbing, cyanosis, or edema. Pedal pulses appreciated NEUROLOGICAL: Awake and alert. Moves all extremity. No focal neurological deficits. Medications and IVs Current Medications Medications (Trade) Dose Ordered Sig/Cyril Route Start Time Stop Time Status Last Admin (NS Flush) 2 ml UNSCH PRN IV FLUSH 10/01/17 16:00 (NS Flush) 2 ml BID IV FLUSH 10/01/17 21:00 10/04/17 08:30 (Zofran Inj) 4 mg Q6H PRN IVP 10/01/17 16:00 (Heparin Inj) 5,000 units Q8H SQ 10/01/17 16:00 10/04/17 08:30 (Narcan Inj) 0.4 mg UNSCH PRN IV PUSH 10/01/17 16:00 (Romazicon Inj) 0.2 mg Q1M PRN IV PUSH 10/01/17 17:45 (Ativan) 1 mg Q4H PRN PO 10/01/17 17:45 10/04/17 08:28 (Ativan Inj) 1 mg Q4H PRN IV PUSH 10/01/17 17:45 10/02/17 16:00 (Ativan) 2 mg Q2H PRN PO 10/01/17 17:45 (Ativan Inj) 2 mg Q2H PRN IV PUSH 10/01/17 17:45 (Ativan Inj) 2 mg Q1H PRN IV PUSH 10/01/17 17:45 (Ativan Inj) 2 mg Q15M PRN IV PUSH 10/01/17 17:45 (Tylenol) 650 mg Q8H PRN PO 10/02/17 18:30 10/04/17 03:51 (Aspirin Chew) 81 mg DAILY CHEW 10/03/17 11:45 10/04/17 08:28 (Lipitor) 20 mg HS PO 10/03/17 21:00 (Cozaar) 50 mg DAILY PO 10/03/17 11:45 10/04/17 08:28 (Synthroid) 25 mcg DAILY@0600 PO 10/04/17 06:00 10/04/17 05:21 Potassium Chloride 100 ml @ 50 mls/hr Q2H IV 10/04/17 09:45 10/04/17 13:44 10/04/17 10:17 (Librium) 10 mg TID@0900,1500,2100 PO 10/04/17 15:00 A/P Assessment and Plan Acute toxic encephalopathy/ Alcoholic hepatitis 2/2 elevated ammonia, EtOH intoxication. INR was 1.2. LFTs normalized. Pneumonia elevated at 41. Liver ultrasound without acute pathology. - CIWA protocol with standing Librium. - seizure precautions. - Check hepatitis profile. - DC lactulose as patient is complaining of too much diarrhea. Hypothyroidism The pt has not taken her levothyroxine for weeks. - resume home dose of levothyroxine. Hypokalemia Likely s/t decreased PO intake. - replace with IV and by mouth potassium, continue to monitor. - telemetry. Nicotine dependence The patient smokes up to a pack daily. - Nicotine patch ordered. - Cessation instruction. PPx: SCDs Discharge Planning Discharge tomorrow morning if potassium stable. Matteo Bazzi DO Oct 04, 2017 11:41
[2017-10-04] MEDS: NICOTINE 21 MG/24 HR PATCH T-DERMAL SCH (12:01)
[2017-10-04 18:58] LABS: BICARBONATE 24.5 MEQ/L (21.0-32.0); CALCIUM 8.5 MG/DL (8.5-10.1); CREATININE 0.83 MG/DL (0.50-1.00)
[2017-10-04] MEDS: ATORVASTATIN 20 MG TAB PO SCH (21:39)
[2017-10-05] VITALS: BP 143/64; PULSE 95; RESP 22; TEMP 97.8; O2SAT 97
[2017-10-05] MEDS: LORazepam 1 MG TAB PO PRN ×2 (01:44→06:50)
[2017-10-05 03:43] VITALS: PULSE 121
[2017-10-05 04:00] VITALS: BP 147/74; PULSE 78; RESP 20; TEMP 97.6; O2SAT 97
[2017-10-05] MEDS ORDERED: SIMETHICONE 80 MG CHEWABLE TAB CHEW ONE (05:00)
[2017-10-05] MEDS: LEVOTHYROXINE SODIUM 25 MCG TAB PO SCH (05:46)
[2017-10-05 07:46] LABS: BICARBONATE 26.2 MEQ/L (21.0-32.0); CALCIUM 8.8 MG/DL (8.5-10.1); CREATININE 0.78 MG/DL (0.50-1.00)
[2017-10-05 08:00] VITALS: BP 143/85; PULSE 85; RESP 20; TEMP 97.7; O2SAT 97
[2017-10-05] MEDS ORDERED: REMOVE OLD PATCH T-DERMAL SCH (09:00)
[2017-10-05] MEDS: SODIUM CHLORIDE 0.9% FLUSH 10 ML FLUSH IV FLUSH SCH (09:00)
[2017-10-05] MEDS: LOSARTAN 50 MG TAB PO SCH (09:05)
[2017-10-05] MEDS: ASPIRIN 81 MG CHEW TAB CHEW SCH (09:05)
[2017-10-05] MEDS: NICOTINE 21 MG/24 HR PATCH T-DERMAL SCH (09:06)
[2017-10-05] MEDS: HEPARIN SODIUM - SQ 10,000 UNITS/ML VIAL SQ SCH (09:06)
[2017-10-05] MEDS ORDERED: POTASSIUM CHLORIDE 25 MEQ EFFERVESCENT TAB PO ONE (09:45)
[2017-10-05] MEDS ORDERED: SYNT25TA PO (09:50)
[2017-10-05] MEDS ORDERED: NICO21DI25 T-DERMAL (09:50)
[2017-10-05] MEDS ORDERED: CHLO10CA5 PO (09:50)
--- NOTE | 2017-10-05 09:54 | HHI.DCPOC ---
Discharge Care Plan Diagnosis: (1) Hypokalemia (2) Nicotine addiction (3) Alcohol intoxication (4) Hepatic encephalopathy Goals to Promote Your Health * To prevent worsening of your condition and complications * To maintain your health at the optimal level Directions to Meet Your Goals Take your medications as prescribed Follow your dietary instruction Follow activity as directed Keep your appointments as scheduled Take your immunizations and boosters as scheduled If your symptoms worsen call your PCP, if no PCP go to Urgent Care Center or Emergency Room Smoking is Dangerous to Your Health. Avoid second hand smoke Call the 24-hour hour crisis hotline for domestic abuse at Matteo Bazzi DO Oct 05, 2017 09:54
[2017-10-05] MEDS ORDERED: LACT10SO PO (09:56)
--- NOTE | 2017-10-05 09:59 | HHI.DS ---
Discharge Summary Admission Date Oct 01, 2017 at 15:58 Discharge Date: Oct 05, 2017 Admitting Diagnosis hepatic encephalopathy (1) Hepatic encephalopathy ICD Code: K72.90 - Hepatic failure, unspecified without coma Diagnosis: Principal Status: Acute (2) Alcohol intoxication ICD Code: F10.929 - Alcohol use, unspecified with intoxication, unspecified Diagnosis: Principal Status: Acute (3) Hypokalemia ICD Code: E87.6 - Hypokalemia Diagnosis: Principal (4) Nicotine addiction ICD Code: F17.200 - Nicotine dependence, unspecified, uncomplicated Diagnosis: Principal Procedures None Brief History - From Admission 56 years old female presented to the ED obtunded He was 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 She felt we are in July, the daughter told me patient drank last night during which has "12% alcohol ", the daughter told me that the patient is a heavy drinker she has no past medical history except for depression and back pain she smoked one pack per day. Most of the story obtained from the daughter CBC/BMP: 10/02/17 0625 10/05/17 0606 Significant Findings Laboratory Tests Test 10/02/17 17:38 10/03/17 17:27 10/04/17 06:07 10/04/17 18:20 Creatinine 1.05 MG/DL (0.50-1.00) 1.09 MG/DL (0.50-1.00) Calcium Level 8.4 MG/DL (8.5-10.1) 8.3 MG/DL (8.5-10.1) 8.1 MG/DL (8.5-10.1) Potassium Level 3.0 MEQ/L (3.5-5.1) 3.2 MEQ/L (3.5-5.1) 2.9 MEQ/L (3.5-5.1) Chloride Level 109 MEQ/L (98-107) Estimat Glomerular Filtration Rate 54 ML/MIN (>89) 52 ML/MIN (>89) 78 ML/MIN (>89) 71 ML/MIN (>89) Albumin 3.3 GM/DL (3.4-5.0) 3.1 GM/DL (3.4-5.0) Alkaline Phosphatase 145 U/L (45-117) Aspartate Amino Transf (AST/SGOT) 42 U/L (15-37) Total Protein 6.1 GM/DL (6.4-8.2) Test 10/05/17 06:06 Estimat Glomerular Filtration Rate 76 ML/MIN (>89) Imaging Last Impressions Liver Ultrasound 10/04/17 0000 Signed Impressions: Service Date/Time: Wednesday, October 04, 2017 07:27 - CONCLUSION: 1. Liver is borderline echogenic which can be seen with mild hepatic steatosis. 2. No evidence for cholelithiasis. 3. Right renal cyst. Agustín Cespedes MD Head CT 10/01/17 1232 Signed Impressions: Service Date/Time: October 13:28 - CONCLUSION: Negative noncontrast CT Matteo Penaloza MD Chest X-Ray 10/01/17 1232 Signed Impressions: Service Date/Time: October 12:51 - CONCLUSION: 1. No acute cardiopulmonary disease. Shelton Mireles MD PE at Discharge GENERAL: Resting comfortably in bed. SKIN: No rashes, warm and dry HEAD: Atraumatic. Normocephalic. EYES: Pupils equal round and reactive. Extraocular motions intact. No scleral icterus. ENT: Nose without bleeding, or drainage, Airway patent. NECK: Trachea midline. Supple CARDIOVASCULAR: Regular rate and rhythm without murmurs, gallops, or rubs. RESPIRATORY: Fair air entry bilaterally. No wheezes, rales, or rhonchi. GASTROINTESTINAL: Abdomen soft, non-tender, nondistended. Positive bowel sounds MUSCULOSKELETAL: Extremities without clubbing, cyanosis, or edema. Pedal pulses appreciated NEUROLOGICAL: Awake and alert. Moves all extremity. No focal neurological deficits. Pt update on day of discharge The patient was feeling well. She requested extra Librium to go home with. She said she has done drinking alcohol. She would like a list of possible primary care doctors accepting new patients. Discussed with case management. Hospital Course Acute toxic encephalopathy/ Alcoholic hepatitis Ammonia level was over 200. INR was 1.2. LFTs normalized. Liver ultrasound without acute pathology. She was placed on CIWA protocol with standing Librium. Hepatitis profile is pending. She will be discharged on lactulose. She will be referred to gastroenterology. Hypothyroidism The pt has not been taking her levothyroxine for weeks so her TSH was elevated. We resumed her home dose of levothyroxine. She will follow up with her PCP. Hypokalemia We replaced with IV and by mouth potassium. She was monitored on telemetry. Her levels normalized. Nicotine dependence The patient smokes up to a pack daily. We ordered a nicotine patch. She received cessation instruction. Pt Condition on Discharge: Stable Discharge Disposition: Discharge Home Discharge Time: <= 30 minutes Discharge Instructions DIET: Follow Instructions for: Heart Healthy Diet Activities you can perform: Weight Bearing as Andrew Follow up Referrals: Appointment for Follow Up Gastroenterology - 2 Weeks PCP Follow-up - 1 Week PCP Follow-up New Medications: Lactulose Liq (Lactulose Liq) 10 Gm/15 Ml Soln 30 ML PO DAILY for Liver, #180 ML 0 Refills Chlordiazepoxide HCl (Chlordiazepoxide HCl) 10 Mg Capsule 10 MG PO BID for Withdrawal, #12 CAP Nicotine (Eq Nicotine) 21 Mg/24 Hour Dis 1 PATCH T-DERMAL DAILY for SMOKING, #30 PATCH Continued Medications: Aspirin (Aspirin) 81 Mg Chew 81 MG CHEW DAILY, TAB 0 Refills Atorvastatin (Atorvastatin) 20 Mg Tab 20 MG PO HS for Cholesterol Management, #30 TAB 0 Refills Indomethacin (Indomethacin) 50 Mg Cap 50 MG PO TID for 5 Days, CAP 0 Refills Take with food, milk, or antacids to decrease stomach adverse effects. Levothyroxine (Synthroid) 25 Mcg Tab 25 MCG PO DAILY for Thyroid, #30 TAB 3 Refills (This prescription has been renewed) Losartan (Losartan) 50 Mg Tab 50 MG PO DAILY for Blood Pressure Management, #30 TAB 0 Refills Matteo Bazzi DO Oct 05, 2017 09:59
[2017-10-05 15:40] LABS: HEPATITIS A AB IGM NEGATIVE (NEGATIVE); HEPATITIS B CORE AB IGM NEGATIVE (NEGATIVE); HEPATITIS B SURFACE ANTIGEN NEGATIVE (NEGATIVE); HEPATITIS C AB IgG NEGATIVE (NEGATIVE)
== END 2017-10-05 11:00 | disposition home or self-care (01) | DRG 442 ==
LOC: NEPE 12:18 → NEDA 15:58 → HCIS 18:38 → N04B 10-02 16:30
PROVIDERS: ADMIT Hospitalist; ATTEND Hospitalist
DX: K72.90 Hepatic failure, unspecified without coma (principal); E72.20 Disorder of urea cycle metabolism, unspecified; K70.10 Alcoholic hepatitis without ascites; D68.9 Coagulation defect, unspecified; I10 Essential (primary) hypertension; F17.210 Nicotine dependence, cigarettes, uncomplicated; Y90.6 Blood alcohol level of 120-199 mg/100 ml; F10.220 Alcohol dependence with intoxication, uncomplicated; E87.6 Hypokalemia; E03.9 Hypothyroidism, unspecified; E78.00 Pure hypercholesterolemia, unspecified; F32.9 Major depressive disorder, single episode, unspecified; R19.7 Diarrhea, unspecified
CPT/HCPCS: 70450; 71045; 76705; 80048; 80053; 80074; 80076; 80307; 81001; 82140; 82948; 83605; 83735; 84439; 84443; 84484; 85025; 85610; 85730; 87040; 87804; 93005; 96374; J1644; J2060; J2310; J3480; J7030